=== PATIENT | female | born 1955 ===

== ENCOUNTER 2017-06-05 03:12 | Emergency (ER) | payer SELFPAY ==
[2017-06-05 03:29] VITALS: BP 110/65; PULSE 95; TEMP 98.4; O2SAT 98
--- NOTE | 2017-06-05 04:16 | ED PDOC ---
HPI: Headache Time Seen by Provider: 06/05/17 03:34 Chief Complaint (Nursing): Headache Chief Complaint (Provider): Eye irritation History Per: Patient History/Exam Limitations: no limitations Onset/Duration Of Symptoms: Worse Since (1 month) Current Symptoms Are (Timing): Still Present Additional Complaint(s): 61 yo female presents to the ED complaining of eye irritation, onset of 1 month ago. Patient initially reports of eye irritation in her right eye with redness, tearing, roughly starting one month ago, but now has developed similar symptoms in her left eye x1 day. She also reports of a headache, but no fever, nausea, vomiting, or body aches. Of note, she has been experiencing thick yellow secretions and feels that her eyes are glued shut. Past Medical History Reviewed: Historical Data, Nursing Documentation, Vital Signs Vital Signs: Last Vital Signs Temp 98.4 F 06/05/17 03:26 Pulse 95 H 06/05/17 03:26 Resp BP 110/65 06/05/17 03:26 Pulse Ox 98 06/05/17 03:26 - Medical History PMH: No Chronic Diseases - Surgical History Other surgeries: herniorrhaphy - Family History Family History: States: Unknown Family Hx - Social History Current smoker - smoking cessation education provided: Yes (3-4 cigarettes per day) Alcohol: None Drugs: Denies - Home Medications Home Medications: Ambulatory Orders Medication Instructions Recorded Ofloxacin Ophth 0.3% [Ocuflox 2 drop OS QID #1 bottle 06/05/17 Ophth 0.3%] Olopatadine HCl [Patanol] 1 drop OP QAM #5 ml 06/05/17 - Allergies Allergies/Adverse Reactions: Allergies Allergy/AdvReac Type Severity Reaction Status Date / Time aspirin Allergy RASH Verified 06/05/17 03:32 Review of Systems ROS Statement: Except As Marked, All Systems Reviewed And Found Negative Constitutional: Negative for: Fever ENT: Positive for: Ear Pain, Ear Discharge Gastrointestinal: Negative for: Nausea, Vomiting Neurological: Positive for: Headache Physical Exam - Reviewed Nursing Documentation Reviewed: Yes Vital Signs Reviewed: Yes - Physical Exam Appears: Positive for: Well, Non-toxic, No Acute Distress Head Exam: Positive for: ATRAUMATIC, NORMAL INSPECTION, NORMOCEPHALIC Skin: Positive for: Normal Color, Warm, DRY Eye Exam: Positive for: EOMI, PERRL, Conjunctival injection (bilaterally with right eye worse than the left) ENT: Positive for: Normal ENT Inspection Neck: Positive for: Normal, Painless ROM Cardiovascular/Chest: Positive for: Regular Rate, Rhythm. Negative for: Murmur Respiratory: Positive for: Normal Breath Sounds. Negative for: Respiratory Distress Gastrointestinal/Abdominal: Positive for: Normal Exam, Soft. Negative for: Tenderness Back: Positive for: Normal Inspection Extremity: Positive for: Normal ROM. Negative for: Pedal Edema, Deformity Neurologic/Psych: Positive for: Alert, Oriented. Negative for: Motor/Sensory Deficits - ECG O2 Sat by Pulse Oximetry: 98 (RA) Pulse Ox Interpretation: Normal Medical Decision Making Medical Decision Making: Time: --03:26 Impression: -- 61 yo female with acute conjunctivitis Plan: --04:10 In provider's opinion, the patient has as allergic conjunctivitis with a bacterial component. Will treat with patanol and ocuflox. Patient is stable for discharge home. Scribe Attestation: Documented by Reyes Copeland acting as a scribe for Jagjit Ricci MD. Provider Attestation: All medical record entries made by the Scribe were at my direction and personally dictated by me. I have reviewed the chart and agree that the record accurately reflects my personal performance of the history, physical exam, medical decision making, and the department course for this patient. I have also personally directed, reviewed, and agree with the discharge instructions and disposition. Disposition - Clinical Impression Clinical Impression: Conjunctivitis - Patient ED Disposition Is Patient to be Admitted: No - Disposition Referrals: [facility] [Outside] Disposition Time: 04:10 Condition: STABLE Prescriptions: Ofloxacin Ophth 0.3% [Ocuflox Ophth 0.3%] 2 drop OS QID #1 bottle Olopatadine HCl [Patanol] 1 drop OP QAM #5 ml Instructions: Conjunctivitis ([place]), Conjunctivitis (Noninfectious [place]) Forms: [facility] (Georgian) Print Language: SETSWANA
== END 2017-06-05 04:27 | disposition home or self-care (01) ==
LOC: H.ER 03:12
DX: R51 Headache (principal); H10.31 Unspecified acute conjunctivitis, right eye